=== PATIENT | male | born 1935 | race African-American/Black ===

== ENCOUNTER 2016-10-06 15:54 | Emergency (ER) | payer OTHER, BC ==
[~2016-10-06] VITALS: Ht 170.2 cm; Wt 83.9 kg
--- NOTE | ~2016-10-06 | EKG ---
[address] [place] [address] ELECTROCARDIOGRAM REPORT Name: CITLALI ELIZALDE Room #: REG RAÚL Bull#: [id number] Admission: 10/06/16 Attend Phys: Discharge: Date of : 31 Report #: [id number] THIS REPORT FOR: //name// [facility] ED Test Date: 2016-10-06 Test Time: 16:28:20 Pat Name: CITLALI ELIZALDE Department: Room: Gender: M Data Management Specialist: POWER : 1935 Requested By: Eric Tucker Order Number: [id number] MD: Ben Vieira Measurements Intervals [place] Rate: 68 P: 18 TN: 216 QRS: 0 QRSD: 158 T: 267 QT: 567 QTc: 604 Interpretive Statements Sinus rhythm Borderline prolonged TN interval Probable left atrial enlargement Nonspecific intraventricular conduction delay Anteroseptal infarct, age indeterminate No previous ECG available for comparison Electronically Signed On 10-06-2016 16:39:00 ICE CARVER by Ben Vieira [email or web address] <ELECTRONICALLY SIGNED> By: Ben Vieira MD 10/06/16 1639 1628 1628 Ben Vieira MD /MAX
[~2016-10-06 15:54] MED LIST: ALLOPURINOL 30300 M1 PO; ALLOPURINOL 30300 M2 PO; AMITIZA 24 MCG24 MC1 PO; AMITIZA 24 MCG24 MCG PO; AMOXICILLIN 50500 M1 PO; ASA81BEC PO; ASPIRIN EC325 M1 PO; ASPIRIN325 PO; AUGMENTIN 875875 M1 PO; CARVEDILOL25 MG PO; COLCHICINE 0.60.6 M1 PO; COLCRYS0.6 MG PO; CORDARONE200 MG PO; COREG25 MG PO; DIOVAN40 MG PO; FUROSEMIDE 40 M40 M1 PO; LASIX 40 MG TAB40 M2 PO; LEVAQUIN 750 M750 MG PO; LIPITOR 20 MG T20 M1 PO; LISINOPRIL20 MG PO; LUBRICANT EYE D15 ML OP; LUBRICATING PL1 EACH OP; LUMIGAN2.5 M1 OPHTHALMIC; OXISTAT60 GM TP; PACERONE 200 M200 M1 PO; PACERONE 200 M200 MG PO; PRAVACHOL 20 MG20 M1 PO; PRAVASTATIN SOD20 MG PO; TRIAMCINOLONE A80 G2; TRIAMCINOLONE10 G1 TOP; TRUSOPT OCUMETE10 M1 OP; TRUSOPT OCUMETE10 M1 OPHTHALMIC; TRUSOPT5 ML OPHTHALMIC; TYLENOL325 MG PO; VITAMIN D400 UNI1 PO
[2016-10-06] MEDS ORDERED: MITIGARE0.6 MG PO (16:28)
[2016-10-06] MEDS ORDERED: ENTRESTO 97 MG1 EACH PO (16:29)
[2016-10-06 16:32] LABS: ABSOLUTE NEUTROPHILS 4.3 thou/uL (1.4-8.2); BASOPHILS 0.8 % (0.0-2.0); EOSINOPHILS 1.3 % (0.0-3.0); HEMATOCRIT 37.9 % (42.0-52.0); HEMOGLOBIN 12.7 gm/dL (14.0-18.0); LYMPHOCYTES 24.3 % (24.0-44.0); MCH 30.8 pg (26.0-34.0); MCHC 33.5 % (28.0-37.0); MCV 92.1 fL (80.0-100.0); MONOCYTES 8.8 % (1.0-8.0); PLATELET COUNT 192 thou/uL (150-400); POLYS 64.8 % (36.0-66.0); RBC 4.12 mil/uL (4.50-6.00); RDW 13.9 % (10.5-14.5); WBC 6.6 thou/uL (4.0-11.0)
[2016-10-06 16:38] LABS: CALCIUM 8.5 mg/dL (8.5-10.1); CREATININE 0.8 mg/dL (0.6-1.3)
[2016-10-06 16:40] LABS: MANUAL DIFF NO
[2016-10-06 16:42] LABS: POTASSIUM 2.7 mmol/L (3.5-5.1)
[2016-10-06 16:48] LABS: TROPONIN-I 0.04 ng/mL (<0.04-0.07)
[2016-10-06 17:24] LABS: URINE BILIRUBIN 1+ (Negative); URINE BLOOD NEGATIVE (Negative); URINE GLUCOSE-RANDOM* NEGATIVE (Negative); URINE KETONES NEGATIVE (Negative); URINE LEUKOCYTES-REFLEX NEGATIVE (Negative); URINE PROTEIN (DIPSTICK) NEGATIVE (Negative); URINE SPECIFIC GRAVITY 1.015 (1.003-1.035); URINE UROBILINOGEN >= 8.0 E.U./dl (0.2-1.0)
[2016-10-06 17:30] LABS: URINE COLOR DARK YELLOW
[2016-10-06 17:52] LABS: CASTS None Seen /LPF (None Seen); CELLULAR CASTS 0-3 Few /LPF (None Seen); CRYSTALS None Seen /LPF (None Seen); SQUAMOUS 0-3 Few /LPF (0-3); URINE RBC 0-2 Rare /HPF (0-2); URINE WBC-REFLEX 0-5 Rare /HPF (0-5)
[2016-10-06] MEDS ORDERED: POTASSIUM20 PO (18:54)
[2016-10-16] MEDS ORDERED: MUCINEX TA600 MG/TA2 PO (13:50)
[2016-10-16] MEDS ORDERED: DOXYCYCLINE 10100 MG PO (13:50)
[2016-10-16] MEDS ORDERED: BENZONATATE100 MG PO (13:50)
[2016-10-16] MEDS ORDERED: VENTOLIN HFA 1818 GM INH (13:50)
[2016-10-16] MEDS ORDERED: PREDNISONE 10 M10 MG PO (13:50)
== END 2016-10-06 19:17 | disposition home or self-care (01) ==
LOC: ER 15:54
PROVIDERS: Physician Assistant
DX: R56.9 Unspecified convulsions (principal); E87.6 Hypokalemia; R53.1 Weakness; Z90.89 Acquired absence of other organs; Z88.8 Allergy status to other drugs, medicaments and biological substances